=== PATIENT | male | born 1955 | race Two or more races ===

== ENCOUNTER 2019-11-04 20:16 | Emergency (ER) | payer MEDICARE, OTHER ==
[~2019-11-04] VITALS: Ht 172.7 cm; Wt 81.6 kg
[~2019-11-04 20:16] MED LIST: ASPI-992 PO; CHLO10TA5 PO; DOCU-141 PO; GABA-534 PO; LORA-259 PO
--- NOTE | 2019-11-04 20:20 | NUR ---
TO ER BED 13 BIB EMS C/O SI WITH PLAN TO CUT THROAT WITH A KNIFE. (+) ETOH. PT AAOX4 NO ACUTE DISTRESS NOTED, RESP EVEN AND UNLABORED. PLACE PT ON CARDIAC MONITORING, CONTINUOUS POX. PT CALM AND COOPERATIVE AT THIS TIME. PENDING ER MD HIGGINBOTHAM.
--- NOTE | 2019-11-04 21:05 | NUR ---
BLOOD DRAWN BY DRY ROASTER.
[2019-11-04 21:15] LABS: BASOPHILS % (AUTO) 0.3 % (0.0-2.0); EOSINOPHILS % (AUTO) 1.3 % (0.0-6.0); HEMATOCRIT 29 % (39-51); HEMOGLOBIN 9.6 g/dL (13.5-17.5); LYMPHOCYTES # (AUTO) 1.5 /CMM (0.8-4.8); LYMPHOCYTES % (AUTO) 17.5 % (20.0-44.0); MEAN CORPUSCULAR HGB CONC 34 g/dl (31.0-36.0); MEAN CORPUSCULAR VOLUME 90 fL (80-96); MONOCYTES # (AUTO) 0.4 /CMM (0.1-1.30); MONOCYTES % (AUTO) 5.1 % (2.0-12.0); NEUTROPHILS # (AUTO) 6.4 /CMM (1.8-8.9); NEUTROPHILS % (AUTO) 75.8 % (43.0-81.0); PLATELET COUNT (AUTO) 344 /CMM (150-450); RED BLOOD CELL COUNT(AUTO) 3.19 MIL/uL (4.5-6.0); WHITE BLOOD COUNT (AUTO) 8.5 K/uL (4.3-11.0)
[2019-11-04 21:23] LABS: CALCIUM, SERUM 8.9 mg/dL (8.5-10.1); CREATININE 1.7 mg/dL (0.6-1.3); POTASSIUM 4.2 mmol/L (3.5-5.1)
[2019-11-04 21:36] LABS: ALBUMIN 3.2 g/dL (3.4-5.0); BILIRUBIN,DIRECT 0.1 mg/dL (0.0-0.2); BILIRUBIN,TOTAL 0.2 mg/dL (0.2-1.0); SALICYLATE 2.9 mg/dL (2.8-20.0); TOTAL PROTEIN, SERUM 7.1 g/dL (6.4-8.2)
--- NOTE | 2019-11-04 21:53 | NUR ---
PT ASLEEP, NO ACUTE DISTRESS NOTED, RESP EVEN AND UNLABORED. 1:1 SITTER REMAINS AT BEDSIDE FOR PT SAFETY. WILL COTINUE TO MONITOR PT CLOSELY.
[2019-11-05] MEDS ORDERED: IV NS 0.9% 1,000 ML BAG IV ONE
--- NOTE | 2019-11-05 00:01 | NUR ---
PT ASLEEP, NO ACUTE DISTRESS NOTED, RESP EVEN AND UNLABORED. 1:1 SITTER REMAINS AT BEDSIDE FOR PT SAFETY. WILL COTINUE TO MONITOR PT CLOSELY.
--- NOTE | 2019-11-05 00:39 | NUR ---
URINE SAMPLE COLLECTED AND SENT TO LAB.
[2019-11-05 00:43] LABS: APPEARANCE,URINE Clear (CLEAR); BILIRUBIN,URINE Negative (NEGATIVE); BLOOD, URINE Negative Ery/uL (NEGATIVE); COLOR,URINE Yellow (YELLOW); KETONES,URINE Negative (NEGATIVE); LEUKOCYTE ESTERASE ,URINE Negative (NEGATIVE); NITRITE, URINE Negative (NEGATIVE); PH,URINE 6.5 (5.0-8.0); PROTEIN,URINE 30 mg/dl (NEGATIVE); UGLUCOSE Negative (NEGATIVE); UROBILINOGEN,URINE 0.2 EU/dL (0.2)
[2019-11-05 01:05] LABS: BACTERIA,URINE Rare /HPF (None Seen); RBC,URINE 0-2 /HPF (0-2); SQUAMOUS EPITHELIAL CELL,UR Rare /HPF (None Seen); WBC,URINE 0-2 /HPF (0-3)
--- NOTE | 2019-11-05 05:59 | NUR ---
PT ASLEEP, NO ACUTE DISTRESS NOTED, RESP EVEN AND UNLABORED. 1:1 SITTER REMAINS AT BEDSIDE FOR PT SAFETY. WILL COTINUE TO MONITOR PT CLOSELY.
--- NOTE | 2019-11-05 08:31 | NUR ---
MARCELO spoke with LAURENCE Madison in ED regarding referring pt to [facility]. MARCELO contacted Bossman at [facility] and was informed pt left [facility] yesterday. However, Bossman will accept the pt to [facility]. CATRINA faxed clinicals to .
--- NOTE | 2019-11-05 10:20 | NUR ---
EDUCATION REVIEWER met with the pt bedside in ED. Pt was standing up and appeared to be ready to leave the hospital. EDUCATION REVIEWER informed pt he was accepted at [facility], however pt declined to go there. Per pt, he wants to leave. Pt denies suicidal and homicidal ideations and visual/auditory hallucinations at this time. Pt was provided with resources. Pt declined TAP card stating he has one. No other social service needs are requested at this time. aware of pt's discharge disposition.
--- NOTE | 2019-11-05 10:30 | NUR ---
SEEN AND EVALUATED BY MARCELINA. SEEN BY FARIBA FRITZ. PT DENIES ANY SI/HI AT THIS TIME. REFUAING TAP CARD AND HOMELESS REFFERALS. REFUSED TO SIGN ACI.
[2019-11-05 12:10] VITALS: BP 132/60
== END 2019-11-05 10:30 | disposition home or self-care (01) ==
LOC: ER 20:16
DX: R45.851 Suicidal ideations (principal); F10.10 Alcohol abuse, uncomplicated; E86.0 Dehydration; N17.9 Acute kidney failure, unspecified; D64.9 Anemia, unspecified; F32.9 Major depressive disorder, single episode, unspecified; F29 Unspecified psychosis not due to a substance or known physiological condition; I10 Essential (primary) hypertension; Y90.1 Blood alcohol level of 20-39 mg/100 ml; Z96.652 Presence of left artificial knee joint; Z98.890 Other specified postprocedural states; Z88.1 Allergy status to other antibiotic agents; Z88.0 Allergy status to penicillin; Z79.899 Other long term (current) drug therapy; Z79.82 Long term (current) use of aspirin
CPT/HCPCS: 36415 ×2; 80048; 80076; 80305; 80307 ×2; 80329; 81001; 85025; 96360; 99285; G0480; 81000-TC

== ENCOUNTER 2019-11-05 23:03 | Emergency (ER) | payer MEDICARE, OTHER ==
[~2019-11-05] VITALS: Ht 172.7 cm; Wt 81.6 kg
--- NOTE | 2019-11-05 23:03 | NUR ---
PT BIBRA FROM OUTSIDE THE RESTAURANT C/O ETOH, PT IS AAOX4, NOT IN RESPIRATORY DISTRESS ,HOOKED TO MONITOR, KEPT RESTED AND COMFORTABLE, WILL CONTINUE TO MONITOR.
--- NOTE | 2019-11-05 23:58 | NUR ---
PT SEEN AND EXAMINED BY
--- NOTE | 2019-11-06 00:08 | NUR ---
ER PHLEB AT BEDSIDE FOR BLOOD DRAW.
--- NOTE | 2019-11-06 00:14 | NUR ---
URINE SPECIMEN COLLECTED AND SENT TO LAB.
[2019-11-06 00:15] LABS: BASOPHILS % (AUTO) 0.5 % (0.0-2.0); EOSINOPHILS % (AUTO) 2.3 % (0.0-6.0); HEMATOCRIT 31 % (39-51); HEMOGLOBIN 10.4 g/dL (13.5-17.5); LYMPHOCYTES # (AUTO) 1.8 /CMM (0.8-4.8); LYMPHOCYTES % (AUTO) 25.9 % (20.0-44.0); MEAN CORPUSCULAR HGB CONC 33 g/dl (31.0-36.0); MEAN CORPUSCULAR VOLUME 90 fL (80-96); MONOCYTES # (AUTO) 0.4 /CMM (0.1-1.30); MONOCYTES % (AUTO) 5.4 % (2.0-12.0); NEUTROPHILS # (AUTO) 4.7 /CMM (1.8-8.9); NEUTROPHILS % (AUTO) 65.9 % (43.0-81.0); PLATELET COUNT (AUTO) 374 /CMM (150-450); RED BLOOD CELL COUNT(AUTO) 3.47 MIL/uL (4.5-6.0); WHITE BLOOD COUNT (AUTO) 7.1 K/uL (4.3-11.0)
[2019-11-06 00:21] LABS: CALCIUM, SERUM 8.9 mg/dL (8.5-10.1); CREATININE 1.6 mg/dL (0.6-1.3); POTASSIUM 4.5 mmol/L (3.5-5.1)
[2019-11-06 00:27] LABS: ALBUMIN 3.1 g/dL (3.4-5.0); BILIRUBIN,DIRECT 0.1 mg/dL (0.0-0.2); BILIRUBIN,TOTAL 0.1 mg/dL (0.2-1.0); TOTAL PROTEIN, SERUM 7.2 g/dL (6.4-8.2)
[2019-11-06 00:30] LABS: SALICYLATE 2.2 mg/dL (2.8-20.0)
[2019-11-06 00:36] LABS: APPEARANCE,URINE Clear (CLEAR); BILIRUBIN,URINE Negative (NEGATIVE); BLOOD, URINE Negative Ery/uL (NEGATIVE); COLOR,URINE Yellow (YELLOW); KETONES,URINE Negative (NEGATIVE); LEUKOCYTE ESTERASE ,URINE Negative (NEGATIVE); NITRITE, URINE Negative (NEGATIVE); PH,URINE 6.5 (5.0-8.0); PROTEIN,URINE >=300 mg/dl (NEGATIVE); UGLUCOSE Negative (NEGATIVE); UROBILINOGEN,URINE 0.2 EU/dL (0.2)
--- NOTE | 2019-11-06 04:39 | NUR ---
PT ASLEEP. VSS. NO ACUTE DISTRESS NOTED. SAFETY PRECAUTIONS IMPLEMENTED. ON CONSTANT OBSERVATION W SITTER AT BEDSIDE
[2019-11-06 07:08] VITALS: BP 108/66
--- NOTE | 2019-11-06 07:08 | NUR ---
Patient given written and verbal discharge instructions. Patient verbalizes understanding of instructions. Patient is ambulatory with steady gait. Refuses offer of nursing home placement. Patient given list of available shelters in surrounding area.
== END 2019-11-06 07:10 | disposition home or self-care (01) ==
LOC: ER 23:03
DX: F10.129 Alcohol abuse with intoxication, unspecified (principal); R45.851 Suicidal ideations; Z98.890 Other specified postprocedural states; Z88.1 Allergy status to other antibiotic agents; Z88.0 Allergy status to penicillin; Z88.8 Allergy status to other drugs, medicaments and biological substances; Z79.899 Other long term (current) drug therapy; Z79.82 Long term (current) use of aspirin; Y90.9 Presence of alcohol in blood, level not specified
CPT/HCPCS: 36415 ×2; 80048; 80076; 80305; 80307 ×2; 80329; 81001; 85025; 99285; G0480; 81000-TC

== ENCOUNTER 2019-11-09 20:51 | Emergency (ER) | payer MEDICARE, OTHER ==
[~2019-11-09] VITALS: Ht 180.3 cm; Wt 74.8 kg
--- NOTE | 2019-11-09 20:56 | NUR ---
BIBS FOR C/O SI W/ PLAN TO " CUT MYSELF WITH A KNIFE", PT TO BED 14, PLACED ON MONITOR, URINE COLLECTED, PT AAOX4, SI PRECAUTIONS STARTED, -SOB, VSS, PENDING ER PROVIDER NEFTALY
[2019-11-09 21:26] LABS: APPEARANCE,URINE Clear (CLEAR); BILIRUBIN,URINE SMALL (NEGATIVE); BLOOD, URINE Moderate Ery/uL (NEGATIVE); COLOR,URINE Yellow (YELLOW); KETONES,URINE 40 (NEGATIVE); LEUKOCYTE ESTERASE ,URINE Negative (NEGATIVE); NITRITE, URINE Negative (NEGATIVE); PH,URINE 5.5 (5.0-8.0); PROTEIN,URINE >=300 mg/dl (NEGATIVE); UGLUCOSE Negative (NEGATIVE)
[2019-11-09 21:30] LABS: BASOPHILS % (AUTO) 0.3 % (0.0-2.0); EOSINOPHILS % (AUTO) 0.6 % (0.0-6.0); HEMATOCRIT 35 % (39-51); HEMOGLOBIN 11.8 g/dL (13.5-17.5); LYMPHOCYTES # (AUTO) 1.1 /CMM (0.8-4.8); MEAN CORPUSCULAR HGB CONC 34 g/dl (31.0-36.0); MEAN CORPUSCULAR VOLUME 88 fL (80-96); MONOCYTES # (AUTO) 0.7 /CMM (0.1-1.30); MONOCYTES % (AUTO) 8.5 % (2.0-12.0); NEUTROPHILS # (AUTO) 6.5 /CMM (1.8-8.9); NEUTROPHILS % (AUTO) 77.6 % (43.0-81.0); PLATELET COUNT (AUTO) 474 /CMM (150-450); RED BLOOD CELL COUNT(AUTO) 4.01 MIL/uL (4.5-6.0); WHITE BLOOD COUNT (AUTO) 8.4 K/uL (4.3-11.0)
[2019-11-09 21:36] LABS: BACTERIA,URINE Few /HPF (None Seen); MUCUS,URINE Few /LPF (None Seen); SQUAMOUS EPITHELIAL CELL,UR Few /HPF (None Seen)
[2019-11-09 21:40] LABS: CALCIUM, SERUM 8.8 mg/dL (8.5-10.1); CREATININE 1.7 mg/dL (0.6-1.3); POTASSIUM 3.8 mmol/L (3.5-5.1)
[2019-11-09 21:50] LABS: ALBUMIN 3.9 g/dL (3.4-5.0); BILIRUBIN,DIRECT 0.2 mg/dL (0.0-0.2); BILIRUBIN,TOTAL 0.5 mg/dL (0.2-1.0); SALICYLATE 3.2 mg/dL (2.8-20.0); TOTAL PROTEIN, SERUM 8.1 g/dL (6.4-8.2)
[2019-11-10] MEDS ORDERED: CEFTRIAXONE 1GM BAG (ER ONLY) 1 GM/50 ML PIGGYBACK IV ONE (01:00)
[2019-11-10] MEDS ORDERED: SULFAMETH/TRIMETH 800/160 MG 1 UDTAB TABLET ONE (01:06)
--- NOTE | 2019-11-10 01:08 | NUR ---
CLINICAL INFORMATION FAXED TO [facility]
[2019-11-10] MEDS ORDERED: SULFAMETH/TRIMETH 800/160 MG 1 UDTAB TABLET PO ONE (01:30)
--- NOTE | 2019-11-10 02:19 | NUR ---
PT ON CONSTANT OBSERVATION. 1:1 SITTER AT BEDSIDE FOR SAFETY. NO ACUTE DISTRESS NOTED. WILL CONTINUE TO MONITOR
--- NOTE | 2019-11-10 04:15 | NUR ---
TRANSFER INFORMATION: PT ACCEPTED TO [facility] ACCEPTING MD: DR. WHITING NUMBER FOR REPORT: [phone] UN[address] [facility] ETA 30MIN
--- NOTE | 2019-11-10 04:19 | NUR ---
PT ASLEEP AND ON CONSTANT OBSERVATION. 1:1 SITTER AT BEDSIDE FOR SAFETY. NO ACUTE DISTRESS NOTED. WILL CONTINUE TO MONITOR
--- NOTE | 2019-11-10 04:29 | NUR ---
REPORT GIVEN TO BOGDAN FROM [facility] DEREJE QUIROS FOR GENARO
--- NOTE | 2019-11-10 04:46 | NUR ---
REPORT GIVEN TO [facility] [address] FOR TRANSPORTATION GENARO
[2019-11-10 04:50] VITALS: BP 158/85
== END 2019-11-10 04:50 | disposition short-term general hospital (02) ==
LOC: ER 20:51
DX: R45.851 Suicidal ideations (principal); F32.9 Major depressive disorder, single episode, unspecified; F41.9 Anxiety disorder, unspecified; Z98.890 Other specified postprocedural states; Z79.82 Long term (current) use of aspirin; Z79.899 Other long term (current) drug therapy; F17.200 Nicotine dependence, unspecified, uncomplicated; Z88.0 Allergy status to penicillin; Z88.1 Allergy status to other antibiotic agents; Z88.8 Allergy status to other drugs, medicaments and biological substances
CPT/HCPCS: 36415; 80048; 80076; 80305; 80307; 80329; 81001; 85025; 99285; G0480; 81000-TC; 87086-TC

== ENCOUNTER 2020-02-18 19:03 | Inpatient (IN) | payer OTHER, MEDICARE ==
[~2020-02-18] VITALS: Ht 180.3 cm; Wt 70.8 kg
--- NOTE | 2020-02-18 19:17 | NUR ---
PT BIB RA WITH A C/O ALOC AND HYPOTENSION. DR YLN WAS AT THE BEDSIDE UPON PT'S ARRIVAL TO ED. PT WAS PLACED ON THE MONITOR AND CONTINUOUS PULSE OX.
--- NOTE | 2020-02-18 19:19 | NUR ---
LABS DRAWN AND SENT TO LAB.
--- NOTE | 2020-02-18 19:22 | NUR ---
XRAY IN PROGRESS AT THE BEDSIDE.
--- NOTE | 2020-02-18 19:26 | NUR ---
PT IS GOING TO [facility] VIA [facility]
[2020-02-18 19:29] LABS: BASOPHILS % (AUTO) 0.2 % (0.0-2.0); EOSINOPHILS % (AUTO) 2.1 % (0.0-6.0); HEMATOCRIT 32 % (39-51); HEMOGLOBIN 10.6 g/dL (13.5-17.5); LYMPHOCYTES # (AUTO) 1.4 /CMM (0.8-4.8); LYMPHOCYTES % (AUTO) 12.2 % (20.0-44.0); MEAN CORPUSCULAR HGB CONC 33 g/dl (31.0-36.0); MEAN CORPUSCULAR VOLUME 92 fL (80-96); MONOCYTES # (AUTO) 0.4 /CMM (0.1-1.30); MONOCYTES % (AUTO) 3.9 % (2.0-12.0); NEUTROPHILS # (AUTO) 9.1 /CMM (1.8-8.9); NEUTROPHILS % (AUTO) 81.6 % (43.0-81.0); PLATELET COUNT (AUTO) 229 /CMM (150-450); RED BLOOD CELL COUNT(AUTO) 3.49 MIL/uL (4.5-6.0); WHITE BLOOD COUNT (AUTO) 11.2 K/uL (4.3-11.0)
[2020-02-18] MEDS ORDERED: IV NS 0.9% 1,000 ML BAG IV ONE (19:30)
[2020-02-18 19:39] LABS: CALCIUM, SERUM 8.5 mg/dL (8.5-10.1); CARBON DIOXIDE 28 mmol/L (21-32); CHLORIDE 102 mmol/L (98-107); GLUCOSE 190 mg/dL (74-106); POTASSIUM 3.8 mmol/L (3.5-5.1); SODIUM SERUM 136 mmol/L (136-145); UREA NITROGEN, BLOOD 32 mg/dL (7-18)
[2020-02-18] MEDS ORDERED: NALOXONE HCL 0.4 MG/ML AMPUL ONE ×3 (20:33→20:52)
--- NOTE | 2020-02-18 20:42 | NUR ---
NARCAN 0.4MG IVP GIVEN PER DR. LYN'S VERBAL ORDER
--- NOTE | 2020-02-18 20:48 | NUR ---
2ND DOSE NARCAN 0.4MG IVP GIVEN PER DR. LYN'S VERBAL ORDER
--- NOTE | 2020-02-18 20:55 | NUR ---
3RD DOSE OF NARCAN 0.4MG IVP GIVEN PER MD ORDERED. NOTED AND CARRIED OUT
--- NOTE | 2020-02-18 21:25 | NUR ---
DR LYN IS AT THE BEDSIDE RE-EVALUATING THE PT. PT RESPONDS TO STERNAL RUB. PT IS ON THE PULSE OX AND MONITOR.
--- NOTE | 2020-02-18 21:32 | NUR ---
SPOKE TO [facility]; SPOKE TO NURSE TAKING CARE OF HIM; SUN- LAST MEDS GIVEN 12PM 100MG PHENYTOIN 4PM 200 SEROQUEL 4PM GABAPENTIN 600 4PM PHENYTOIN 100 DENIED ANY PRN ATIVAN OR AMBIEN
--- NOTE | 2020-02-18 21:46 | NUR ---
COVID SWAB DONE AND SENT TO LAB.
[2020-02-18] MEDS ORDERED: NALOXONE HCL 0.4 MG/ML AMPUL IV ONE ×3 (22:00)
--- NOTE | 2020-02-18 22:22 | NUR ---
CALLED LAB RE: COVID SWAB STATUS. THEY ARE JUST RECEIVING THE SWAB NOW.
--- NOTE | 2020-02-18 22:30 | NUR ---
CALLED LAB. THEY DO NOT HAVE THE SWAB.
--- NOTE | 2020-02-18 22:50 | NUR ---
CALLED LAB. SWAB IS BEING TAKEN TO LAB FROM STAT LAB.
--- NOTE | 2020-02-18 23:00 | NUR ---
REPORT GIVEN TO LAURENCE RUVALCABA FOR PT IS GOING TELE [phone]
--- NOTE | 2020-02-18 23:11 | NUR ---
DILAN, TRIAL MANAGER, [facility].
--- NOTE | 2020-02-18 23:21 | NUR ---
SPOKE TO DILAN, HOMEOWNER ASSOCIATION MANAGER.
--- NOTE | 2020-02-18 23:24 | NUR ---
COVID NEGATIVE PER LAB
--- NOTE | 2020-02-18 23:41 | NUR ---
PT APPEARS TO BE SLEEPING SOUNDLY WITH NO S/S OF PAIN OR DISTRESS. PT'S VSS. PT IS RESPONSIVE TO PAINFUL STIMULI.
[2020-02-19] VITALS: BP 126/68
--- NOTE | 2020-02-19 | NUR ---
JOURNEYMAN PAINTER ADMITTING NOTES RECEIVED PT FROM ER VIA ANN. PT REACTING TO PAINFUL STIMULI. RESPIRATIONS EVEN AND UNLABORED WITH NO S/S OF ACUTE DISTRESS OR SOB NOTED. NO S/S OF PAIN AT THIS TIME. PT NOTED WITH RAC #18G PATENT AND INTACT. SAFETY MEASURES IN PLACE WITH BED IN LOWEST LOCKED POSITION WITH SIDE RAILS UP X2. CALL LIGHT WITHIN REACH. WILL CONTINUE TO MONITOR.
[2020-02-19] MEDS: IV NS 0.9% 1,000 ML IV PRN (01:52)
[2020-02-19] MEDS ORDERED: ONDANSETRON HCL/PF 4 MG/2 ML VIAL IVP PRN (02:00)
[2020-02-19] MEDS ORDERED: Z GUARD REMEDY 2 OZ OINT TP PRN (02:00)
[2020-02-19] MEDS ORDERED: ACETAMINOPHEN 325 MG TABLET PO PRN (02:00)
[2020-02-19] MEDS: ENOXAPARIN SODIUM 40 MG/0.4 ML DISP.SYRIN SQ SCH (02:02)
--- NOTE | 2020-02-19 02:15 | NUR ---
TOP CAGER NOTES SCD AND DVT PUMP APPLIED. WILL CONTINUE TO MONITOR.
[2020-02-19 02:47] LABS: ABG BASE EXCESS -1.6 mmol/L; ABG OXYGEN SATURATION 95.4 % (92.0-98.5); ABG PCO2 38.8 mmHg (35.0-45.0); ABG PH 7.392 (7.350-7.450); ABG PO2 78.6 mmHg (75.0-100.0); AaDO2 24.7 mmHg; COHb 0.4 % (0.5-1.5); MetHb 0.1 % (0.0-1.5); O2Hb 94.9 % (94.0-97.0); SITE, ABG Right Radial; VENT MODE, BG Room Air
[2020-02-19 04:00] VITALS: BP 130/57
--- NOTE | 2020-02-19 04:00 | NUR ---
REGIONAL OFFICE COORDINATOR NOTES PT AWAKE AND ALERT. WILL CONTINUE TO MONITOR.
--- NOTE | 2020-02-19 05:38 | NUR ---
RN NOTES: PER PT HE WILL ONLY STAY IN THE HOSPITAL IF HE RECEIVE NORCO, ATIVAN, SEROQUEL WELLBUTRIN AND PAXIL. Addendum: 02/20/20 at 0541 by RON KAY RN DISREGARD ABOVE DOCUMENTATION: WRONG TIME
--- NOTE | 2020-02-19 07:53 | NUR ---
DIESEL ENGINE SPECIALIST NOTES PT IN BED RESTING. PT A/O X3 WITH PERIODS OF CONFUSION. RESPIRATIONS EVEN AND UNLABORED WITH NO S/S OF ACUTE DISTRESS OR SOB NOTED THROUGHOUT SHIFT. PT KEPT CLEAN, DRY, AND COMFORTABLE. NO S/S OF PAIN AT THIS TIME. SAFETY MEASURES IN PLACE WITH BED IN LOWEST LOCKED POSITION WITH SIDE RAILS UP X2. CALL LIGHT WITHIN REACH. WILL ENDORSE TO ONCOMING NURSE FOR GENARO.
[2020-02-19 08:00] VITALS: BP 132/67
--- NOTE | 2020-02-19 08:00 | NUR ---
MANAGER SOCIAL WORK NOTES PATIENT IN BED RESTING SITTER AT BEDSIDE. NO SOB OR ACUTE DISTRESS NOTED. PATIENT WITHOUT PERIPHERAL IV, PER [facility] NURSE PATIENT PULLED OUT IV. BED IN LOW LOCKED POSITION. CALL LIGHT WITHIN REACH. WILL CONTINUE TO MONITOR.
[2020-02-19] MEDS: ASPIRIN 325 MG TABLET PO SCH (09:47)
[2020-02-19] MEDS ORDERED: ZOLPIDEM TARTRATE 5 MG TABLET PO PRN (10:00)
--- NOTE | 2020-02-19 10:00 | NUR ---
OFFSET LITHOGRAPHIC PRESS SETTER NOTES PATIENT VERBALIZED DESIRE TO HURT HIMSELF. STATING HE WILL HIT HIS HEAR ON THE GROUND REPEATEDLY IF HE DOES NOT RECEIVED HIS MEDICATIONS. DR. IBARRA MADE AWARE OF PATIENTS STATEMENTS. SITTER AT PATIENTS BEDSIDE. WILL CONTINUE TO MONITOR.
[2020-02-19] MEDS: QUETIAPINE FUMARATE 100 MG TABLET PO SCH ×3 (10:04→16:53)
[2020-02-19] MEDS: BUPROPION XL 150 MG TAB.ER.24 PO SCH (10:04)
--- NOTE | 2020-02-19 10:10 | NUR ---
CARE SUPPORT REPRESENTATIVE NOTES PATIENT WAS SEEN BY DR. CORCORAN AND STARTED ON ORAL PSYCHIATRIC MEDICATIONS. PATIENT CLEARED FOR DISCHARGE WHEN MEDICALLY CLEARED.
[2020-02-19 12:00] VITALS: BP 132/65
--- NOTE | 2020-02-19 12:15 | NUR ---
SW CONSULT: Modeling Director conducted a social media intern consult to assess the pts living situation, emotional state, and conduct a needs assessment. SW conducted the consult at bedside. Pts assigned sitter was present. Pt reported he came from [facility] prior to admission at [facility]. Pt reported that prior to [facility], he was living in a motel room in the [place], [place]. Pt reported he receives SSDI, but has been unable to retrieve the pin to his card. SW suggested calling the customer services line/number provided on the back of the card. Pt understood. Pt reported he carries a psychiatric diagnosis of depression and anxiety. Pt endorsed suicidal ideation with a plan of running into the freeway, and no one can stop me! SW asked the pt if he would be willing to return to [facility] for inpatient psychiatric placement, but the pt denied and reported they didnt help me. Pt is reluctant to returning to [facility], despite encouragement from CATRINA. Pt is adamant that he is NOT ready to leave the hospital, and continuously endorses suicidal ideation with plan. Pt reported an extensive history of self-harm by cutting his wrists and arms (showed SW his scars), and a history of suicidal ideation and attempts. Pt reported his symptoms of depression have been exacerbated by his mothers recent . Pt denied drug use and reported that he wants to stop drinking. SW provided drug and alcohol resources, as well as [facility] homeless resources. CATRINA also provided contact information to [facility] as the pt reported he was previously connected to that clinic for mental health services. Pt signed the Homeless Waiver; SW filled the document in his chart. Pt reported he would eventually like to live in a rehab place. SW praised the pt for goal setting and explained that his mental health and suicidal ideation must be stabilized before long-term placement. CATRINA provided active listening, emotional support, and resources throughout the interaction and consult. CATRINA consulted with pts RN, Marsha. Per Marsha, the pt was recently evaluated by psychiatry and cleared. Per Marsha, the pt was also started on a psychotropic medication regimen to of Seroquel and Wellbutrin to treat his symptoms of anxiety and depression. Given the pts ongoing suicidal ideation with plan, CATRINA contacted on-call vacuum metalizing supervisor, Jacob ROBERTSON ([phone]) for crisis mental health evaluation and placement options. Art STREETCAR CONDUCTOR will conduct the assessment. Aforementioned information endorsed to Towel Rolling Machine Operator, Kym, and pts RN, Marsha. community services officer available for support as needed.
--- NOTE | 2020-02-19 15:30 | NUR ---
DENTAL MANAGER NOTES PATIENT SEEN BY CRISIS TEAM.
[2020-02-19 16:00] VITALS: BP 145/80
--- NOTE | 2020-02-19 18:29 | NUR ---
LEASING SPECIALIST NOTES PATIENT IN BED RESTING NO SOB OR ACUTE DISTRESS NOTED. ALL DUE MEDICATIONS ADMINISTERED. ALL NEEDS MET. NO ACUTE CHANGES NOTED DURING SHIFT. BED IN LOW LOCKED POSITION. CALL LIGHT WITHIN REACH. WILL CONTINUE TO MONITOR.
--- NOTE | 2020-02-19 19:45 | NUR ---
BUSINESS EDUCATION INSTRUCTOR: WENT TO CHECK ON PT. PT A/O X3, ON RA, ABLE TO STATE NAME, , DATE/MONTH/YEAR, PRESIDENT, AND REASON WHY HIS HERE. PT CURSING AT STAFF. PT VOICING THAT HE STILL HAVE PLANS OF KILLING HIMSELF IN THE BATHROOM, BY HITTING HIMSELF ON THE WALL, AND THAT HE HAS INTENTION TO DO IT TONIGHT OR TOMORROW. PT SEEN AND EVALUATED BY CRISIS TEAM AND PSYCH MD, 1:1 SITTER AT BED SIDE. REMOVED CONTRABAND. SCD REMOVED PER SAFETY/SUICIDAL PRECAUTION. CALL LIGHT REMOVED, TELEPHONE REMOVED. CLOSE MONITORING INITIATED, FOR SUICIDAL PRECAUTION, SAFETY PRECAUTIONS FOR FALL INITAITED, SIDE RAILS UP X 3 FOR SAFETY, BED BRAKE ENGAGED, WILL CONTINUE MONITORING PT [id number] FOR SAFETY AND ANY CHANGES IN BEHAVIOR. SALES ADVISORY MANAGER MADE AWARE.
--- NOTE | 2020-02-19 20:00 | NUR ---
RN NOTES: PT REFUSING BP TO BE CHECK, ONLY ALLOWED TO CHECK HIS ORAL TEMP. PT STARTED YELLING OUT HE DOESNT WANT ANY BP AND OXYGEN CHECK. EDUCATION PROVIDED TO PT. SITTER AT BEDSIDE. PT IN LINE OF SIGHT. CLOSE MONITORING, SUICIDAL PRECAUTION.
--- NOTE | 2020-02-19 20:54 | NUR ---
RN NOTES/REFUSAL FOR VS: PT REFUSING VS TO BE CHECK, ONLY ALLOWED SPINNING MULE TENDER AND RN TO CHECK HIS TEMPERATURE. PT STATED HE DOESN'T NEED HIS BP TO BE CHECK, HE'S FEELING FINE, AND WHAT HE NEEDED WAS PAIN MEDICATION. INFORMED PT ABOUT TYLENOL ORDERED, MD AWARE OF OF PT'S REQUEST FOR PAIN MEDICATION, BUT GIVEN SITUATION AND HX OF PT, PT HAS BEEN ALOC, AND WAS BEEN UNRESPONSIVE AND WAS GIVEN NARCAN YESTERDAY. PT DOESNT WANT TO LISTEN TO ANY EXPLANATION AND STARTED CURSING AT STAFF. EDUCATION PROVIDED TO PT REGARDING IMPORTANCE OF VS TAKING.
--- NOTE | 2020-02-19 21:30 | NUR ---
rn notes: pt complaining that no medication was given to him,he added he's been here for 2days and been asking for pain medication seroquel ativan and ambien and pain medication. education provided to pt, informed that he was restarted on low dose psych medication by psych md, and being cautious about his medication due to episode of unresponsive yesterday as pt end up receiving narcan doses. pt unpredictable, impulsive, accused rn that we are holding his medication. he stated he doesnt like each nurses, pt yelling and cursing, pt been refusing for vital sign check despite education,keep cursing profanities. md made aware of pt's behavir, broomcorn thresher aware of situation. pt remains on close monitoring, suicidal precaution.
--- NOTE | 2020-02-20 | NUR ---
rn notes: notified md banking management consulting manager hospitalist about pt refusal with vs and difficult behavior.
[2020-02-20] MEDS: IV NS 0.9% 1,000 ML IV PRN (00:38)
--- NOTE | 2020-02-20 00:41 | NUR ---
RN NOTES: PT REFUSED VS AT 0000, ALSO REFUSED TO BE CONNECTED TO IVF, STATED "I DONT GIVE A DAMN!". EDUCATION PROVIDED TO PT, SITTER AT BED SIDE, RN KENNEY WITNESS.
--- NOTE | 2020-02-20 00:49 | NUR ---
RN NOTES: ENCOURAGED PT TO HAVE IVFLUID CONNECTED, EDUCATE REGARDING RISK AND BENEFITS, PT SAID THE SAME THING AGAINA ND HIDING HIS ARMS WHERE THE IV ACCESS WAS INSERTED.
--- NOTE | 2020-02-20 00:58 | NUR ---
RN NOTES: PT STARTED BECOMING COMBATIVE, ASKING FOR ATIVAN AND PAIN MEDICATIONS, EDUCATE PT THAT THERE IS ONLY TYLENOL AND AMBIEN FOR HIM THAT CAN HELP HIM SLEEP TONIGHT. ASKED HELPED FROM KELLI DANG AND SHAHIDA RN PT SEEMS TO CHANGE BEHAVIOR WHEN THERE IS PRESENCE OF MALE RN. SOON PT SAW PRESENCE OF 2 MALE RN HIS BEHAVIOR CHANGE AND STARTED TO LISTEN. HE AGREE FOR TYLENOL FOR HEAD ACHE AND REQUESTED FOR AMBIEN FOR SLEEP. ALSO HE AGREE TO BE CONNECTED TO [facility]. PT WAS PROVIDED WITH SNACK SUCH CRANBERRY JUICE AND CRACKERS. SITTER AT BED SIDE. PT REMAINS ON CLOSE MONITORING, SUICIDE RISK.
--- NOTE | 2020-02-20 01:30 | NUR ---
RN NOTES: RECEIVED CALL FROM NENO, INTAKE FROM [facility]. ASKING ABOUT PT PLACEMENT, INFORMED THAT PT WAS SEEN BY CRISIS TEAM AND PER NOTES PT AGREE TO BE SEND TO [facility] ADMISSION, AND THAT PACKET WERE FAXED. PER INTAKE, THEY HASNT RECEIVE ANY CLINICALS, BUT WILL WAIT LATER TODAY. INTAKE STATED DR HUGO PSYCHIATRIST ALSO GO TO [facility] AND [facility].
[2020-02-20] MEDS: ENOXAPARIN SODIUM 40 MG/0.4 ML DISP.SYRIN SQ SCH (02:06)
--- NOTE | 2020-02-20 02:30 | NUR ---
rn notes: pt was convinced by lilly barajas to receive the medication/lovenox. pt appears to be cooperative when male rn taking care of him. sitter at bed side. remains on line of sight, [id number] check, 1:1 sitter at bed side.
--- NOTE | 2020-02-20 03:57 | NUR ---
rn notes/refusal ivf: pt refused ivf at this time, despite providing education, stated its not worth it.
--- NOTE | 2020-02-20 05:30 | NUR ---
rn notes: refused tele monitoring, decided to dress up, thrown tele box to staff, female nurses was being treated differently by pt, been cursing at staff and saying bitch and other profanities.
--- NOTE | 2020-02-20 05:33 | NUR ---
RN NOTES: PT STARTED DRESSING UP, THROW HIS TELE BOX, STATED HE WOULD LIKE TO LEAVE THE HOSPITAL HE IS NOT RECEIVING ANY MEDICATION. PT'S PSYCH MEDS STARTED BACK YESTERDAY AND PER DOCUMENTATION, ALL MEDS WAS TAKEN AND RECEIVED BY PT. MALE RN KELLI AND PEG TRIED CALMING PT DOWN, SPEAKING WITH PT AND TRYING TO ENCOURAGE HIM TO STAY FOR HIS OWN SAFETY. PODIATRY TEACHER AWARE OF THE SITUATION. PT NOT COOPERATING WELL, WITH FEMALE NURSES. PT VERY PASSIVE, REFUSING TO LISTEN TO FEMALE NURSES, STILL REFUSING VS, UNCOOPERATIVE WITH DIFFICULT BEHAVIOR. HOWEVER WHEN MALE RN ARE TALKING TO HIM, HE LISTEN ALL EARS. NOTIFIED EPIC MD HOSPITALIST OF THE SITUATION.
--- NOTE | 2020-02-20 05:41 | NUR ---
RN NOTES: PER PT HE WILL ONLY STAY IN THE HOSPITAL IF HE RECEIVE NORCO, ATIVAN, SEROQUEL WELLBUTRIN AND PAXIL.
--- NOTE | 2020-02-20 06:05 | NUR ---
rn notes: crisis team currebtly in the unit to do re-evaluation of pt, contacted dr arreguin regarding pt's behavior, per md to have crisis nurse check on pt for re-eval and if its cleared from crisis nurse to release the pt then md is okay for pt to leave ama. brass burnisher aware of situation
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
--- NOTE | 2020-02-20 07:00 | NUR ---
rn notes: approached by tori diaz, pt pulled out iv access, stated he doesnt need it anymore. corn cutter made aware. pressured dressing applied.
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
--- NOTE | 2020-02-20 07:21 | NUR ---
rn notes: awaiting pharmacy verification of medication, endorsed to lilly aleman to give the medication as soon as its verified.
[2020-02-20] MEDS ORDERED: LORAZEPAM 1 MG TABLET PO PRN (07:30)
[2020-02-20] MEDS ORDERED: HYDROCODONE/APAP 10/325MG TABLET PO PRN (07:30)
--- NOTE | 2020-02-20 07:33 | NUR ---
end of shift report: pt remains uncooperative, manipulative, difficult pt and unpredictable, impulsive, cursing profanities to staff, yells, easily changed mood and behavior, pt with 1:1 sitter at bedside, remains on suicide precaution,close monitoring, contraband removed. pt still voicing he will kill himself by hitting and banging head in the bathroom wall in the morning. safety precautions for fall remains engaged, side rails up x3 for safety, continue monitoring pt [id number] for safety and any changes in behavior, endorsed to kalani aleman rn for continuity of care.
--- NOTE | 2020-02-20 08:00 | NUR ---
NEWS INTERN AM NOTES Pt remains uncooperative, manipulative, difficult pt and unpredictable, impulsive, cursing profanities to staff, yells, easily changed mood and behavior, pt with 1:1 sitter at bedside, remains on suicide precaution,close monitoring, contraband removed. pt still voicing he will kill himself by hitting and banging head in the bathroom wall in the morning. safety precautions for fall remains engaged, side rails up x3 for safety, continue monitoring pt [id number] for safety and any changes in behavior. Call light placed within reach.
--- NOTE | 2020-02-20 08:20 | NUR ---
PT WAS COMPLIANT AND COOPERATIVE WITH MEDS AND TREATMENT. PLEASANT WITH STAFF. NO AGITATION EPISODE IN THE MORNING. PT WAS READING THE BIBLE AND WAS RESPECTFULLY COMMUNICATING WITH THE STAFF WITH NO THREATENING EPISODES.WILL CONTINUE TO MONITOR.WITH 1:1 SITTER.
[2020-02-20] MEDS: ASPIRIN 325 MG TABLET PO SCH (08:25)
[2020-02-20] MEDS: QUETIAPINE FUMARATE 100 MG TABLET PO SCH ×2 (08:25→12:21)
[2020-02-20] MEDS: BUPROPION XL 150 MG TAB.ER.24 PO SCH (08:25)
--- NOTE | 2020-02-20 08:30 | NUR ---
NO SUICIDAL IDEATION NOTED.
[2020-02-20] MEDS ORDERED: THIAMINE HCL 100 MG TABLET PO SCH (09:00)
[2020-02-20] MEDS ORDERED: MULTIVITAMINS,THERAGRAN 1 UDTAB TABLET PO SCH (09:00)
[2020-02-20 09:41] LABS: BASOPHILS % (AUTO) 0.2 % (0.0-2.0); EOSINOPHILS % (AUTO) 3.9 % (0.0-6.0); HEMATOCRIT 36 % (39-51); HEMOGLOBIN 11.9 g/dL (13.5-17.5); LYMPHOCYTES # (AUTO) 0.7 /CMM (0.8-4.8); MEAN CORPUSCULAR HGB CONC 33 g/dl (31.0-36.0); MEAN CORPUSCULAR VOLUME 91 fL (80-96); MONOCYTES # (AUTO) 0.4 /CMM (0.1-1.30); MONOCYTES % (AUTO) 4.6 % (2.0-12.0); NEUTROPHILS # (AUTO) 6.7 /CMM (1.8-8.9); NEUTROPHILS % (AUTO) 82.3 % (43.0-81.0); PLATELET COUNT (AUTO) 285 /CMM (150-450); RED BLOOD CELL COUNT(AUTO) 3.96 MIL/uL (4.5-6.0); WHITE BLOOD COUNT (AUTO) 8.1 K/uL (4.3-11.0)
[2020-02-20] MEDS: chlorproMAZINE HCL 25 MG TABLET PO SCH ×2 (09:57→12:21)
[2020-02-20 10:00] VITALS: BP 145/82
[2020-02-20 10:02] LABS: CALCIUM, SERUM 9.2 mg/dL (8.5-10.1); CREATININE 1.1 mg/dL (0.6-1.3); MAGNESIUM 2.1 mg/dL (1.8-2.4); PHOSPHORUS 3.7 mg/dL (2.5-4.9); POTASSIUM 4.9 mmol/L (3.5-5.1)
--- NOTE | 2020-02-20 13:01 | NUR ---
PT CONTINUES TO BE COOPERATIVE AND PLEASANT WITH STAFF. PT WAS ASKING FOR ATIVAN PRN AND GIVEN ORDERED. NO THREATENING BEHAVIOR NOTED. DENIES ANY DISCOMFORT. PROVIDED SNACKS WELL. WILL CONTINUE TO MONITOR.
--- NOTE | 2020-02-20 16:30 | NUR ---
DISCHARGED PT TO [facility] VIA AMBULANCE WITH STABLE V/S.CALLED IN REPORT TO LAURENCE SIMS EXT [phone] OF [facility]. PT WAS GETTING ANXIOUS THAT HE CAME TO [facility] WITH SHOES.PT WAS TOO LETHARGIC WHEN HE ARRIVED AND SHOES ARE NOT ON HIS BELONGINGS LIST EITHER. NOTIFIED LAURENCE SIMS. TRIED TO LOOK FOR SHOES FOR THE PT BUT THERE IS NO AVAILABLE SHOES HIS SIZE AND PT WAS PROVIDED HOSPITAL SOCKS (DOUBLED UP). DENIED ANY PAIN OR DISTRESS.
== END 2020-02-20 16:45 | DRG 682 ==
LOC: ER 19:06 → TELE 23:46 → MED 02-20 08:43
PROVIDERS: ADMIT Nurse Practitioner Acute Care; ATTEND Hospitalist
DX: N17.0 Acute kidney failure with tubular necrosis (principal); G92 Toxic encephalopathy; J98.11 Atelectasis; T43.595A Adverse effect of other antipsychotics and neuroleptics, initial encounter; Y92.009 Unspecified place in unspecified non-institutional (private) residence as the place of occurrence of the external cause; D63.8 Anemia in other chronic diseases classified elsewhere; I10 Essential (primary) hypertension; Z96.652 Presence of left artificial knee joint; Z87.820 Personal history of traumatic brain injury; G93.89 Other specified disorders of brain; Z88.1 Allergy status to other antibiotic agents; Z88.0 Allergy status to penicillin; Z88.8 Allergy status to other drugs, medicaments and biological substances; Z79.899 Other long term (current) drug therapy; F25.1 Schizoaffective disorder, depressive type; Z81.8 Family history of other mental and behavioral disorders; Z79.82 Long term (current) use of aspirin; F10.20 Alcohol dependence, uncomplicated; Y90.0 Blood alcohol level of less than 20 mg/100 ml; F39 Unspecified mood [affective] disorder; N13.9 Obstructive and reflux uropathy, unspecified; G31.9 Degenerative disease of nervous system, unspecified; Z98.890 Other specified postprocedural states
CPT/HCPCS: 36415; 36600; 70450-TC; 71045-TC; 80048-TC; 80061-TC; 80305; 82140-TC; 82803-TC; 82962-TC; 83735-TC; 84100-TC; 84484-TC; 85025-TC; 85730-TC; 87081-TC; 93307-TC; 97116-TC; 97530-TC; G0378; J1650; J2310; J7030; Q0161